=== PATIENT | female | born 2000 | race Caucasian/White ===

== ENCOUNTER 2022-05-12 08:23 | Emergency (ER) | payer OTHER ==
[~2022-05-12] VITALS: Ht 162.6 cm; Wt 61.2 kg
[2022-05-12 09:46] LABS: URINE BILIRUBIN - DIPSTICK NEGATIVE (NEGATIVE); URINE BLOOD DIPSTICK TRACE-INTACT (NEGATIVE); URINE COLOR YELLOW; URINE GLUCOSE - DIPSTICK NEGATIVE (NEGATIVE); URINE KETONE NEGATIVE (NEGATIVE); URINE LEUK ESTERASE NEGATIVE (NEGATIVE); URINE PH 5.5 (4.5-8.0); URINE PROTEIN - DIPSTICK NEGATIVE (NEG-TRACE); URINE SPECIFIC GRAVITY >=1.030; URINE UROBILINOGEN - DIPSTICK 0.2 E.U./dL (0.2)
[2022-05-12 09:49] LABS: URINE NITRITE - DIPSTICK NEGATIVE (Negative)
[2022-05-12] MEDS ORDERED: AMOXICILLIN500 MG PO (10:05)
[2022-05-12 10:06] VITALS: BP 93/57
== END 2022-05-12 10:12 | disposition home or self-care (01) ==
LOC: ED 08:23
PROVIDERS: Emergency Medicine
DX: J02.9 Acute pharyngitis, unspecified (principal); F17.200 Nicotine dependence, unspecified, uncomplicated; Z20.822 Contact with and (suspected) exposure to COVID-19

== ENCOUNTER 2023-12-30 09:52 | Emergency (ER) | payer SELFPAY ==
[~2023-12-30] VITALS: Ht 162.6 cm; Wt 77.0 kg
[~2023-12-30 09:52] MED LIST: AMOXICILLIN500 MG PO
[2023-12-30 10:28] LABS: URINE BLOOD DIPSTICK Trace-intact (NEGATIVE); URINE GLUCOSE - DIPSTICK Negative (NEGATIVE); URINE KETONE >=160 mg/dL (NEGATIVE); URINE LEUK ESTERASE Negative (NEGATIVE); URINE NITRITE - DIPSTICK Negative (Negative); URINE PROTEIN - DIPSTICK >=300 mg/dL (NEG-TRACE); URINE SPECIFIC GRAVITY >=1.030; URINE UROBILINOGEN - DIPSTICK 0.2 E.U./dL (0.2)
[2023-12-30 10:30] LABS: URINE COLOR Yellow
[2023-12-30 10:35] LABS: URINE RBC 0-2 RBC/hpf (0-5)
[2023-12-30 10:36] LABS: URINE SQUAMOUS EPITHELIAL CELL MANY EPI/hpf (0-FEW)
[2023-12-30] MEDS ORDERED: ONDANSETRON 4 MG/TAB ODT PO ONE (10:45)
[2023-12-30] MEDS ORDERED: SODIUM CHLORIDE 0.9% 1,000 ML IV STA (11:34)
[2023-12-30] MEDS ORDERED: METOCLOPRAMIDE HCL 10 MG/2 ML SDV IV ONE (11:35)
[2023-12-30 12:08] LABS: BASO% 0.2 % (0-3); EOS% 0.6 % (0-8); IMMATURE GRANULOCYTES 0.2 % (0.0-5.0); LYMPH% 13.6 % (15-41); MEAN CELL VOLUME 92.9 fL CALC (80.0-100.0); MEAN CORPUSCULAR HGB 31.2 pG CALC (26.0-32.0); MEAN CORPUSCULAR HGB CONC 33.6 g/dL CAL (32.0-36.0); MONO% 7.9 % (2-13); NEUT# 14.73 thou/uL (2.00-7.15); NEUT% 77.5 % (42-76); RED BLOOD COUNT 5.09 mill/uL (4.20-5.60); RED CELL DISTRI WIDTH 12.4 % (11.5-15.5)
[2023-12-30 12:09] LABS: HEMATOCRIT 47.3 % (37.0-47.0); HEMOGLOBIN 15.9 g/dl (12.0-16.0)
[2023-12-30 12:26] LABS: ALBUMIN 5.6 g/dL (3.2-5.0); BILIRUBIN, TOTAL 1.1 mg/dL (0.02-1.3); CREATININE 0.7 mg/dL (0.5-1.0); POTASSIUM 3.5 mmol/l (3.5-5.1); TOTAL PROTEIN 9.6 g/dL (6.3-8.2)
[2023-12-30] MEDS ORDERED: ONDANSETRON HCl 4 MG/2 ML SDV IV ONE (13:05)
[2023-12-30] MEDS ORDERED: REGLAN10 MG PO ×2 (15:13→16:02)
[2023-12-30] MEDS ORDERED: ZOFRAN4 MG/TAB PO ×2 (15:13→16:02)
[2023-12-30 15:18] VITALS: BP 138/77
[2024-01-01] MEDS ORDERED: REGLAN10 MG PO (17:48)
[2024-01-01] MEDS ORDERED: ZOFRAN4 MG/TAB PO (17:48)
== END 2023-12-30 15:25 | disposition home or self-care (01) | DRG 832 ==
LOC: ED 09:52
PROVIDERS: Family Medicine; Nurse Practitioner
DX: O21.0 Mild hyperemesis gravidarum (principal); O99.321 Drug use complicating pregnancy, first trimester; F14.90 Cocaine use, unspecified, uncomplicated; F12.90 Cannabis use, unspecified, uncomplicated; O99.331 Smoking (tobacco) complicating pregnancy, first trimester; F17.210 Nicotine dependence, cigarettes, uncomplicated; Z3A.01 Less than 8 weeks gestation of pregnancy